=== PATIENT | female | born 1965 | race Caucasian/White ===

== ENCOUNTER 2022-12-19 06:27 | Day surgery (SDC) | payer OTHER, SELFPAY ==
[2022-12-19 06:36] VITALS: BMI 25.9
--- NOTE | 2022-12-19 06:40 | PC.NURSE ---
Patient stated in preop I just want to let everyone know that I bleed easily. For the last few months, if I bump my hand or something I bruise instantly and bad. My PCP is aware . OR team and Dr. Peng made aware. No new orders at this time.
[2022-12-19 06:45] VITALS: BP 142/71; PULSE 84; RESP 16; TEMP 36.4; O2SAT 98
[2022-12-19] MEDS: Lactated Ringers 1,000 ML 100 ML IVCONT (06:49)
--- NOTE | 2022-12-19 07:23 | HO.ANESPROP2 ---
HPI - Anesthesia Eval Consult details Narrative: colonoscopy [facility] Past Medical History Medical History Bursitis Former smoker Family History Family history of problems with anesthesia: No Surgical History Surgical History (Updated 12/19/22 @ 06:35 by Tatyana Curiel) Cataract extraction status Previous section History of Problems with Anesthesia: No Social History Social History Patient Tobacco Use Status: Former Tobacco user Quit Date: 1999 Tobacco use type: Cigarette Years Smoked: 20 Smoked in Last 30 Days: No Use of substances other than those prescribed or required for medical reasons: No Are you DNR?: No Advance Directives: No Advance Directives Information Provided: Yes Meds Allergies Allergy/AdvReac Type Severity Reaction Status Date / Time tetracycline Allergy Intermediate Itching Unverified 12/19/22 06:41 Home Medications Medication Instructions Recorded Confirmed Last Taken Type naproxen 500 mg tablet 500 mg PO DAILY PRN Pain 12/18/22 12/19/22 10/18/22 History Vitamin C 1 tab PO DAILY 12/19/22 12/19/22 Unknown History multivitamin 1 tab PO DAILY 12/19/22 12/19/22 Unknown History Exam Exam Date and Time: December 19, 2022 0723 Height,Weight and Vital Signs: Height 5 ft 4 in Weight 68.492 kg Last Vital Signs Temp 97.6 F 12/19/22 06:45 Pulse 84 12/19/22 06:45 Resp 16 12/19/22 06:45 BP 142/71 H 12/19/22 06:45 Pulse Ox 98 12/19/22 06:45 O2 Del Method 12/19/22 06:45 Airway Mallampati Class: I TM Dist: >3cm Neck ROM: Full Loose/Missing/Broken Teeth: No Heart: ok Lungs: ok Assessment and Plan Assessment Anesthesia Assessment: Anesthesia Plan Discussed and Chart Reviewed Final Anesthetic Review Family History of Problems with Anesthesia: No History of Problems with Anesthesia: No NPO: Yes ASA Class: I Final Preanesthetic Review: No Changes in Pt Med Stat, Meds/Allgs Chart Reviewed, Consent Obtained/Reviewed and Anes Risks/Benef Reviewed Patient Risk: Low Procedure Risk: Low Anesthetic Plan Anesthetic Plan: MAC: and Agree w/ Assess. and Plan Disposition: Standard PACU
--- NOTE | 2022-12-19 07:30 | MHC.SHP ---
Pre-Procedural Eval Section A Date of Service: 12/19/22 Section B Chief Complaint: Other fecal abnormalities Details of Present Illness: see H&P no changes Relevant Family History (Specify if Yes): No Relevant Social History: None Present Medications: see Short Stay Collaborative assessment Medical History: No relevant PMH History of Previous Operations: No relevant previous surgery Allergies: Allergies Allergy/AdvReac Type Severity Reaction Status Date / Time tetracycline Allergy Intermediate Itching Unverified 12/19/22 06:41 Review of Systems Sugical H&P ROS: Negative: Constitution, Cardiovascular, Respiratory, Neurological, Psychiatric, Hem-Onc, Allergic/Immunologic, Gastrointestinal, Genitourinary, Musculoskeletal, Integumentary, Endocrine and Eyes/Ears/Nose/Throat Exam Surgical H&P Exam: Normal: HEENT, Normal: Heart, Normal: Lungs, Normal: Extremities, Normal: Abdomen, Normal: Skin and Normal: Neurological Plan Diagnosis/Plan: Unchanged I have reviewed the history and physical and performed a pertinent physical examination on my patient. No changes have occurred unless specified. Time Spent With Patient Time: Total time managing care of this patient today ____ minutes.
--- NOTE | 2022-12-19 08:02 | P.BOP_ITS ---
Brief Operative Note Date of Service: 12/19/22 Pre-op diagnosis: abnl findings in stool Post-op diagnosis: same Procedure: [id number] Surgeon: Sanket Peng Anesthesia: MAC Was an Solid State Tester used for this Procedure?: No Estimated blood loss (mL): 0 Pathology: none sent Condition: stable Disposition: PACU
[2022-12-19 08:07] VITALS: BP 97/55; PULSE 68; RESP 18; TEMP 36.6; O2SAT 94
--- NOTE | 2022-12-19 08:20 | OP_ITS ---
SURGEON: Sanket Peng MD INDICATIONS: Abnormal findings in stool. PREOPERATIVE DIAGNOSIS: POSTOPERATIVE DIAGNOSIS: PROCEDURE PERFORMED: ESTIMATED BLOOD LOSS: COMPLICATIONS: ANESTHESIA: ASSISTANTS: SPECIMENS: PROCEDURE: Colonoscopy to the terminal ileum. MEDICATIONS: Monitored anesthesia care. PROCEDURE DESCRIPTION: The history and physical were performed. The procedure was performed on 12/19/2022. The Olympus pediatric video colonoscope was introduced into the rectum after digital rectal exam was performed and was found to be normal. The scope was advanced to the cecum without difficulty. The cecum was identified by transillumination, palpation, and identification of ileocecal valve, examination was performed. The scope was removed. She tolerated the procedure well and was taken to recovery room in stable condition. FINDINGS: The terminal ileum was examined and appeared normal. The visualized colonic mucosa was normal. The quality of the prep was good. No polyps were identified. There was moderate sigmoid diverticulosis. Retroflexed examination showed small to moderate-sized internal hemorrhoids. IMPRESSION: Normal colonoscopy. RECOMMENDATIONS: 1. Follow up as needed. 2. Repeat colonoscopy is recommended in 10 years for average risk individuals. [address] Huff/[place] / [phone]
[2022-12-19 08:22] VITALS: BP 117/68; PULSE 67; RESP 18; TEMP 36.6; O2SAT 96
== END 2022-12-19 08:48 | disposition home or self-care (01) ==
PROVIDERS: PCP Family Medicine; Visit Provider Internal Medicine Gastroenterology
PROC: 0DJD8ZZ Inspection of Lower Intestinal Tract, Via Natural or Artificial Opening Endoscopic (ICD-10-PCS; CPT 45378; principal; 2022-12-19 07:30)
DX: R19.5 Other fecal abnormalities (principal); K57.30 Diverticulosis of large intestine without perforation or abscess without bleeding; K64.8 Other hemorrhoids; M75.51 Bursitis of right shoulder; Z79.1 Long term (current) use of non-steroidal anti-inflammatories (NSAID); Z87.891 Personal history of nicotine dependence
CPT/HCPCS: 45378